=== PATIENT | female | born 1955 | race Caucasian/White ===

== ENCOUNTER 2018-03-14 18:55 | Emergency (ER) | payer MEDICAID, MEDICARE ==
[2018-03-14 19:16] VITALS: BP 150/99
--- NOTE | 2018-03-14 19:47 | EDM.PDOC ---
ED HPI GENERAL MEDICAL PROBLEM - General Chief Complaint: Lower Extremity Injury/Pain Stated Complaint: RIGHT KNEE INJURY Time Seen by Provider: 03/14/18 19:41 Source of Information: Reports: Patient, Family, RN Notes Reviewed History Limitations: Reports: No Limitations - History of Present Illness INITIAL COMMENTS - FREE TEXT/NARRATIVE: 62-year-old female presents to the emergency department day complaint of right knee pain, she injured herself 2 days ago with a twisting injury pain has gotten increasingly worse, is able to ambulate Right Knee Pain Score (Numeric/FACES): 10 - Related Data Allergies Allergy/AdvReac Type Severity Reaction Status Date / Time No Known Allergies Allergy Verified 03/14/18 19:11 Home Meds: Home Meds FLUoxetine [PROzac] 20 mg PO DAILY 05/31/15 [History] buPROPion [Wellbutrin SR] 100 mg PO DAILY 05/31/15 [History] Topiramate [Topamax] 200 mg PO BID 06/01/15 [History] Acetaminophen/HYDROcodone [[place] 325-10 MG] 1 tab PO Q6H PRN #20 tablet [Rx] Dextroamphetamine/Amphetamine [Adderall Xr 30 mg Capsule] 30 mg PO DAILY [History] Prazosin [Minpress] 1 mg PO BEDTIME PRN 03/14/18 [History] SUMAtriptan [Imitrex] 6 mg SQ ASDIRECTED 03/14/18 [History] Zolpidem Tartrate [Ambien] 10 mg PO BEDTIME 03/14/18 [History] Past Medical History HEENT History: Reports: Cataract, Impaired Vision Cardiovascular History: Reports: Hypertension Genitourinary History: Reports: Chronic Renal Insuffiency, Renal Calculus Other Genitourinary History: 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: hx bilateral mastectomy Musculoskeletal History: Reports: Arthritis, Fracture, Fibromyalgia Other Musculoskeletal History: hx of tail bone fx Psychiatric History: Reports: Depression Endocrine/Metabolic History: Reports: Diabetes, Type II Oncologic (Cancer) History: Reports: Breast - Infectious Disease History Infectious Disease History: Reports: Chicken Pox, Measles, Mumps, Pertussis ( Whooping Cough) - Past Surgical History HEENT Surgical History: Reports: Cataract Surgery, Oral Surgery, Tonsillectomy GI Surgical History: Reports: Appendectomy, Cholecystectomy Female Surgical History: Reports: Section, Hysterectomy Oncologic Surgical History: Reports: Mastectomy, Other (See Below) Other Oncologic Surgeries/Procedures: double total mastectomy Social & Family History - Tobacco Use Smoking Status *Q: Current Every Day Smoker Years of Tobacco use: 20 Packs/Tins Daily: 0.5 - Caffeine Use Caffeine Use: Reports: None - Recreational Drug Use Recreational Drug Use: No Review of Systems - Review of Systems Review Of Systems: See Below Musculoskeletal: Reports: Joint Pain (Knee pain) Skin: Reports: No Symptoms Neurological: Reports: No Symptoms ED EXAM, GENERAL - Physical Exam Exam: See Below Free Text/Narrative:: Examination of the right knee on appreciate any erythema there is no edema noted she is tender to palpation on the medial aspect does not tolerate valgus, Gustavo's is negative anterior drawer is negative pedal pulse is +2 Exam Limited By: No Limitations General Appearance: Alert, WD/WN, No Apparent Distress Course - Vital Signs Last Recorded V/S: Last Vital Signs Temp 97.5 F 03/14/18 19:15 Pulse 82 03/14/18 19:15 Resp 18 03/14/18 19:15 BP 150/99 H 03/14/18 19:15 Pulse Ox 96 03/14/18 19:15 - Orders/Labs/Meds Orders: Active Orders 24 hr Category Date Time Status Knee 3V Rt [CR] Stat Exams 03/14/18 19:44 Ordered DME for Discharge [COMM] Urgent Oth 03/14/18 20:11 Ordered Departure - Departure Time of Disposition: 20:13 Disposition: Home, Self-Care 01 Condition: Good Clinical Impression: Strain of right knee Qualifiers: Encounter type: initial encounter Qualified Code(s): S86.911A - Strain of unspecified muscle(s) and tendon(s) at lower leg level, right leg, initial encounter - Discharge Information Referrals: Dalton Rivera NP [Primary Care Provider] - Forms: ED Department Discharge Additional Instructions: Continue to use knee brace and crutches as needed for pain control and comfort, continue to use ibuprofen as needed for baseline pain control, please follow-up with your primary care provider in the next 2-3 days for reevaluation, call return to the emergency department worsening of symptoms - My Orders Last 24 Hours: My Active Orders 03/14/18 19:44 Knee 3V Rt [CR] Stat 03/14/18 20:11 DME for Discharge [COMM] Urgent - Assessment/Plan Last 24 Hours: My Active Orders 03/14/18 19:44 Knee 3V Rt [CR] Stat 03/14/18 20:11 DME for Discharge [COMM] Urgent Plan: Assessment Acuity = acute Site and laterality = right knee strain Etiology = secondary twisting injury Manifestations = none Location of injury = Home Lab values = knee x-rayI did review films myself I cannot appreciate any acute process, the official read from radiology is pending Plan She is placed in a knee immobilizer and crutches will follow up with primary care the next 2-3 days for reevaluation continued use ibuprofen or Tylenol as needed for pain control This note was dictated using [employer] voice recognition software please call with any questions on syntax or grammar.
--- NOTE | 2018-03-15 09:09 | CR ---
Knee 3V Rt CLINICAL HISTORY: Right knee pain FINDINGS: No acute fracture or dislocation is noted. There are no osseous lesions. Articular surfaces are smooth. There is some patellar spurring. Impression: No fracture Mild osteoarthritic change
== END 2018-03-14 20:29 | disposition home or self-care (01) ==
LOC: JP.ED 18:55
DX: S86.911A Strain of unspecified muscle(s) and tendon(s) at lower leg level, right leg, initial encounter (principal); I12.9 Hypertensive chronic kidney disease with stage 1 through stage 4 chronic kidney disease, or unspecified chronic kidney disease; N18.4 Chronic kidney disease, stage 4 (severe); F17.210 Nicotine dependence, cigarettes, uncomplicated; E11.9 Type 2 diabetes mellitus without complications; Z79.899 Other long term (current) drug therapy; X50.9XXA Other and unspecified overexertion or strenuous movements or postures, initial encounter; Y92.009 Unspecified place in unspecified non-institutional (private) residence as the place of occurrence of the external cause
CPT/HCPCS: 73562-26-RT; 73562-RT; 99284

== ENCOUNTER 2018-04-08 16:16 | Emergency (ER) | payer MEDICARE ==
[2018-04-08] MEDS ORDERED: Ondansetron 4 MG/2 ML SDV IVPUSH ONE (16:57)
[2018-04-08] MEDS ORDERED: Sodium Chloride 0.9% 10 ML Syringe FLUSH PRN (16:57)
[2018-04-08] MEDS ORDERED: Sodium Chloride 0.9% 1,000 ML IV ONE (16:57)
--- NOTE | 2018-04-08 17:09 | EDM.PDOCBH ---
ED HPI GENERAL MEDICAL PROBLEM - General Chief Complaint: Headache Stated Complaint: VIA [facility] Time Seen by Provider: 04/08/18 16:40 Source of Information: Reports: Patient, EMS, Police History Limitations: Reports: No Limitations. Denies: Altered Mental Status, Combative/Threatening, Respiratory Distress - History of Present Illness INITIAL COMMENTS - FREE TEXT/NARRATIVE: Chiquita presents today per EMS for concerns of suicide attempt. Per police a 72 hour hold was placed. stating Chiquita's said she was threatening suicide by taking too many pills. Deputies responded and found patient locked in her bathroom. One bottle of hydrocodone 10/325mg tablets with fill date of 03/23/18 for #120 present with #3 tablets in bottle. Chiquita states her took some of her pain pills to [place] with him. She states she also thinks she has about #10 in her purse. Patient is awake, alert with no respiratory depression upon presentation to the emergency room. GCS 15. Patient complains of migraine headache for 7 days. She has tried resting, ice, heat, baths, sumatriptan. She also complains of flare of fibromyalgia and untreated anaplasmosis. Headache Pain Score (Numeric/FACES): 7 - Related Data Allergies Allergy/AdvReac Type Severity Reaction Status Date / Time No Known Allergies Allergy Verified 04/08/18 16:32 Home Meds: Home Meds FLUoxetine [PROzac] 20 mg PO DAILY 05/31/15 [History] buPROPion [Wellbutrin SR] 100 mg PO DAILY 05/31/15 [History] Acetaminophen/HYDROcodone [[place] 325-10 MG] 1 tab PO Q6H PRN #20 tablet [Rx] Dextroamphetamine/Amphetamine [Adderall Xr 30 mg Capsule] 30 mg PO DAILY [History] SUMAtriptan [Imitrex] 6 mg SQ ASDIRECTED 03/14/18 [History] Zolpidem Tartrate [Ambien] 10 mg PO BEDTIME 03/14/18 [History] Past Medical History HEENT History: Reports: Cataract, Impaired Vision Cardiovascular History: Reports: Hypertension Gastrointestinal History: Reports: Inflammatory Bowel Disease Genitourinary History: Reports: Chronic Renal Insuffiency, Renal Calculus Other Genitourinary History: 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: hx bilateral mastectomy Musculoskeletal History: Reports: Arthritis, Fracture, Fibromyalgia Other Musculoskeletal History: hx of tail bone fx Neurological History: Reports: Migraines Psychiatric History: Reports: ADHD, Depression Endocrine/Metabolic History: Reports: Diabetes, Type II Other Endocrine/Metabolic History: no meds in 3 years Hematologic History: Reports: Other (See Below) Other Hematologic History: vitamin D deficiency Oncologic (Cancer) History: Reports: Breast - Infectious Disease History Infectious Disease History: Reports: Chicken Pox, Measles, Mumps, Pertussis ( Whooping Cough) - Past Surgical History HEENT Surgical History: Reports: Cataract Surgery, Oral Surgery, Tonsillectomy GI Surgical History: Reports: Appendectomy, Cholecystectomy Female Surgical History: Reports: Section, Hysterectomy Oncologic Surgical History: Reports: Mastectomy, Other (See Below) Other Oncologic Surgeries/Procedures: double total mastectomy Social & Family History - Tobacco Use Years of Tobacco use: 40 Tobacco Use Comment: smoker 40years states 2 ciggs a day was 1 pack a day - Caffeine Use Caffeine Use: Reports: Energy Drinks, Soda - Recreational Drug Use Recreational Drug Use: No ED ROS GENERAL - Review of Systems Review Of Systems: See Below Constitutional: Reports: Fatigue, Other (Flare of fibromyalgia). Denies: Fever , Chills, Malaise, Weakness HEENT: Reports: No Symptoms Respiratory: Denies: Shortness of Breath, Wheezing, Cough, Sputum Cardiovascular: Reports: No Symptoms Endocrine: Reports: No Symptoms GI/Abdominal: Reports: Nausea. Denies: Black Stool, Bloody Stool, Constipation , Diarrhea, Decreased Appetite, Distension, Vomiting : Reports: No Symptoms Musculoskeletal: Reports: Other (Generalized muscle pain) Skin: Reports: No Symptoms Neurological: Reports: Headache. Denies: Confusion, Dizziness, Numbness, Paresthesia, Syncope, Tingling, Trouble Speaking, Difficulty Walking, Weakness, Gait Disturbance Psychiatric: Reports: Depression, Other (Patient denies suicidal/homicidal ideation or plan, however police have placed a 72-hour hold. ) Hematologic/Lymphatic: Reports: No Symptoms Immunologic: Reports: No Symptoms ED EXAM, BEHAVIORAL HEALTH - Physical Exam Exam: See Below Text/Narrative:: Chiquita is an alert and oriented 62 year old female presenting per EMS by law enforcement for concerns of overdose. Patient is alert, oriented and cooperative. She reports she is upset with not being able to see her grandchild. Exam Limited By: No Limitations General Appearance: Alert, WD/WN, Mild Distress Eye Exam: Bilateral Eye: EOMI, Normal Inspection, PERRL Ears: Normal External Exam, Normal Canal, Hearing Grossly Normal, Normal TMs Nose: Normal Inspection, Normal Mucosa, No Blood Throat/Mouth: Normal Inspection, Normal Lips, Normal Gums, Normal Oropharynx, Normal Voice, No Airway Compromise Head: Atraumatic, Normocephalic Neck: Normal Inspection, Supple, Non-Tender, Full Range of Motion. No: Lymphadenopathy (R), Lymphadenopathy (L) Respiratory/Chest: No Respiratory Distress, Lungs Clear, Normal Breath Sounds, No Accessory Muscle Use, Chest Non-Tender Cardiovascular: Normal Peripheral Pulses, Regular Rate, Rhythm, No Edema, No Murmur, No Rub GI/Abdominal: Normal Bowel Sounds, Soft, Non-Tender, No Distention, No Mass Back Exam: Normal Inspection, Full Range of Motion. No: CVA Tenderness (R), CVA Tenderness (L) Extremities: Normal Inspection, Normal Range of Motion, Non-Tender, No Pedal Edema, Normal Capillary Refill Neurological: Alert, Normal Cognition, No Motor/Sensory Deficits, Oriented x 3, Other (Tearful) Psychiatric: Alert, Oriented, Flat Affect, Tearful. No: Poor Eye Contact, Homicidal Thoughts, Suicidal Plan, Suicidal Thoughts, Auditory Hallucinations, Visual Hallucinations Skin Exam: Warm, Dry, Intact, Normal color, No rash EKG INTERPRETATION EKG Date: 04/08/18 Time: 17:56 Rhythm: NSR Rate (Beats/Min): 75 [place]: LAD-Left [place] Deviation P-Wave: Present QRS: Normal ST-T: Normal QT: Normal COURSE, BEHAVIORAL HEALTH COMP - Course Vital Signs: Last Vital Signs Temp 37.6 C 04/08/18 16:19 Pulse 66 04/08/18 20:35 Resp 18 04/08/18 20:35 BP 171/96 H 04/08/18 21:20 Pulse Ox 97 04/08/18 20:35 17:17 Patient status discussed with her primary provider Dalton Rivera NP. We will evaluate the patient and she will follow up with Miguel as directed. Orders, Labs, Meds: Active Orders 24 hr Category Date Time Status EKG Documentation Completion [RC] ASDIRECTED Care 09/14/18 17:23 Active Head wo Cont [CT] Stat Exams 04/08/18 19:54 Taken Lactated Ringers [Ringers, Lactated] 1,000 ml Med 04/08/18 19:00 Active IV ASDIRECTED Sodium Chloride 0.9% [Saline Flush] Med 04/08/18 16:57 Active 10 ml FLUSH ASDIRECTED PRN Saline Lock Insert [OM.PC] Routine Oth 04/08/18 16:57 Ordered EKG 12 Lead [EK] Routine Ther 04/08/18 17:23 Ordered Medication Orders Lactated Ringer's (Ringers, Lactated) 1,000 mls @ 1,000 mls/hr IV ASDIRECTED LEOBARDO Last Admin: 04/08/18 19:11 Dose: 1,000 mls/hr Sodium Chloride (Saline Flush) 10 ml FLUSH ASDIRECTED PRN PRN Reason: Keep Vein Open Laboratory Tests 04/08/18 04/08/18 04/08/18 Range/Units 17:08 17:08 17:08 WBC 7.3 (4.5-11.0) K/uL RBC 4.80 (3.30-5.50) M/uL Hgb 15.5 H D (12.0-15.0) g/dL Hct 46.8 (36.0-48.0) % MCV 98 (80-98) fL MCH 32 H (27-31) pg MCHC 33 (32-36) % Plt Count 303 (150-400) K/uL Neut % (Auto) 68 H (36-66) % Lymph % (Auto) 22 L (24-44) % [place] % (Auto) 7 H (2-6) % Eos % (Auto) 3 (2-4) % Baso % (Auto) 0 (0-1) % Sodium 140 (140-148) mmol/L Potassium 4.0 (3.6-5.2) mmol/L Chloride 103 (100-108) mmol/L Carbon Dioxide 28 (21-32) mmol/L Anion Gap 9.1 (5.0-14.0) mmol/L BUN 34 H D (7-18) mg/dL Creatinine 1.8 H (0.6-1.0) mg/dL Est Cr Clr Drug Dosing 29.53 mL/min Estimated GFR (MDRD) 29 L (>60) Glucose 134 H (74-106) mg/dL Calcium 10.1 D (8.5-10.1) mg/dL Total Bilirubin 0.2 (0.2-1.0) mg/dL AST 20 (15-37) U/L ALT 29 (12-78) U/L Alkaline Phosphatase 118 H (46-116) U/L Total Protein 7.2 (6.4-8.2) g/dL Albumin 3.3 L (3.4-5.0) g/dL Globulin 3.9 H (2.3-3.5) g/dL Albumin/Globulin Ratio 0.9 L (1.2-2.2) TSH, Ultra Sensitive (0.358-3.740) uIU/mL Salicylates 1.8 L (2.0-20.0) mg/dL Urine Opiates Screen (NEGATIVE) Ur Oxycodone Screen (NEGATIVE) Urine Methadone Screen (NEGATIVE) Ur Propoxyphene Screen (NEGATIVE) Acetaminophen < 2.0 L (10.0-30.0) ug/mL Ur Barbiturates Screen (NEGATIVE) Ur Tricyclics Screen (NEGATIVE) Ur Phencyclidine Scrn (NEGATIVE) Ur Amphetamine Screen (NEGATIVE) U Methamphetamines Scrn (NEGATIVE) Urine MDMA Screen (NEGATIVE) U Benzodiazepines Scrn (NEGATIVE) U Cocaine Metab Screen (NEGATIVE) U Marijuana (THC) Screen (NEGATIVE) Ethyl Alcohol mg/dL 04/08/18 04/08/18 04/08/18 Range/Units 17:08 17:08 17:25 WBC (4.5-11.0) K/uL RBC (3.30-5.50) M/uL Hgb (12.0-15.0) g/dL Hct (36.0-48.0) % MCV (80-98) fL MCH (27-31) pg MCHC (32-36) % Plt Count (150-400) K/uL Neut % (Auto) (36-66) % Lymph % (Auto) (24-44) % [place] % (Auto) (2-6) % Eos % (Auto) (2-4) % Baso % (Auto) (0-1) % Sodium (140-148) mmol/L Potassium (3.6-5.2) mmol/L Chloride (100-108) mmol/L Carbon Dioxide (21-32) mmol/L Anion Gap (5.0-14.0) mmol/L BUN (7-18) mg/dL Creatinine (0.6-1.0) mg/dL Est Cr Clr Drug Dosing mL/min Estimated GFR (MDRD) (>60) Glucose (74-106) mg/dL Calcium (8.5-10.1) mg/dL Total Bilirubin (0.2-1.0) mg/dL AST (15-37) U/L ALT (12-78) U/L Alkaline Phosphatase (46-116) U/L Total Protein (6.4-8.2) g/dL Albumin (3.4-5.0) g/dL Globulin (2.3-3.5) g/dL Albumin/Globulin Ratio (1.2-2.2) TSH, Ultra Sensitive 0.780 (0.358-3.740) uIU/mL Salicylates (2.0-20.0) mg/dL Urine Opiates Screen Presumptive positive H (NEGATIVE) Ur Oxycodone Screen Presumptive positive H (NEGATIVE) Urine Methadone Screen Negative (NEGATIVE) Ur Propoxyphene Screen Negative (NEGATIVE) Acetaminophen (10.0-30.0) ug/mL Ur Barbiturates Screen Negative (NEGATIVE) Ur Tricyclics Screen Negative (NEGATIVE) Ur Phencyclidine Scrn Negative (NEGATIVE) Ur Amphetamine Screen Presumptive positive H (NEGATIVE) U Methamphetamines Scrn Negative (NEGATIVE) Urine MDMA Screen Negative (NEGATIVE) U Benzodiazepines Scrn Presumptive positive H (NEGATIVE) U Cocaine Metab Screen Negative (NEGATIVE) U Marijuana (THC) Screen Presumptive positive H (NEGATIVE) Ethyl Alcohol < 3 mg/dL Medications Generic Name Dose Route Start Last Admin Trade Name Freq PRN Reason Stop Dose Admin Lactated Ringer's 1,000 mls @ 1,000 mls/hr 04/08/18 19:00 04/08/18 19:11 Ringers, Lactated IV 1,000 mls/hr ASDIRECTED LEOBARDO Administration Sodium Chloride 10 ml 04/08/18 16:57 Saline Flush FLUSH ASDIRECTED PRN Keep Vein Open Discontinued Medications Generic Name Dose Route Start Last Admin Trade Name Freq PRN Reason Stop Dose Admin Clonidine HCl 0.1 mg 04/08/18 21:16 04/08/18 21:20 Catapres PO 04/08/18 21:17 0.1 mg ONETIME ONE Administration Sodium Chloride 1,000 mls @ 1,000 mls/hr 04/08/18 16:57 04/08/18 17:53 Normal Saline IV 04/08/18 17:56 1,000 mls/hr .BOLUS ONE Administration Labetalol HCl 20 mg 04/08/18 18:27 04/08/18 20:07 Normodyne IVPUSH 04/08/18 18:28 Not Given ONETIME ONE Protocol Labetalol HCl 20 mg 04/08/18 19:02 04/08/18 19:12 Normodyne IVPUSH 04/08/18 19:03 20 mg ONETIME ONE Administration Protocol Lorazepam 0.5 mg 04/08/18 19:56 04/08/18 20:02 Ativan IVPUSH 04/08/18 19:57 0.5 mg ONETIME ONE Administration Ondansetron HCl 4 mg 04/08/18 16:57 04/08/18 17:54 Zofran IVPUSH 04/08/18 16:58 4 mg ONETIME ONE Administration Sumatriptan Succinate 6 mg 04/08/18 20:17 04/08/18 20:37 Imitrex SUBCUT 04/08/18 20:18 6 mg ONETIME ONE Administration Patient lab work reviewed. Crisis team arrived. Re-Assessment/Re-Exam: 19:55 Patient reports worsening of headache, unable to sit still. Lorazepam 0.5mg IV ordered. We will complete head CT without contrast. 20:11 Crisis team completed evaluation. They recommend family supervision and safety plan. Patient present. 20:19 No improvement in headache after lorazepam, we will try imitrex 6mg subcutaneous. 20:[address] negative 21:16 Patient blood pressure 170's/70's, we will give her clonidine 0.1mg PO x one dose. Re-Assessment/Re-Exam Date: 04/08/18 (21:18 Patient reports she feels better, she can be discharged to home with . ) Departure - Departure Time of Disposition: 21:08 Disposition: Home, Self-Care 01 Condition: Good Clinical Impression: Migraine, Suicidal thoughts - Discharge Information *PRESCRIPTION DRUG MONITORING PROGRAM REVIEWED*: Yes *COPY OF PRESCRIPTION DRUG MONITORING REPORT IN PATIENT BORIS: Yes Instructions: Migraine Headache Referrals: PCP,None [Primary Care Provider] - Forms: ED Department Discharge Additional Instructions: You have been evaluated and treated for suicidal thoughts and migraine headache. CT scan of head negative for any acute findings. You were given IV fluids, lorazepam and imitrex IM while in the emergency room. Your lab work did not show any acute signs of infection, however you continue to suffer from decreased kidney function. Keep yourself hydrated. Follow your safety plan, if feeling like you want to kill yourself or anyone else return to the emergency room to prevent self harm or harm to others. Follow up with your primary in the next 3 to 7 days for a recheck. Return to the emergency room for worsening, issues or concerns. - My Orders Last 24 Hours: My Active Orders 04/08/18 16:57 Sodium Chloride 0.9% [Saline Flush] 10 ml FLUSH ASDIRECTED PRN Saline Lock Insert [OM.PC] Routine 04/08/18 17:23 EKG Documentation Completion [RC] ASDIRECTED EKG 12 Lead [EK] Routine 04/08/18 19:00 Lactated Ringers [Ringers, Lactated] 1,000 ml IV ASDIRECTED 04/08/18 19:54 Head wo Cont [CT] Stat - Assessment/Plan Last 24 Hours: My Active Orders 04/08/18 16:57 Sodium Chloride 0.9% [Saline Flush] 10 ml FLUSH ASDIRECTED PRN Saline Lock Insert [OM.PC] Routine 04/08/18 17:23 EKG Documentation Completion [RC] ASDIRECTED EKG 12 Lead [EK] Routine 04/08/18 19:00 Lactated Ringers [Ringers, Lactated] 1,000 ml IV ASDIRECTED 04/08/18 19:54 Head wo Cont [CT] Stat Plan: Patient evaluated and treated for suicidal thoughts and migraine headache. Crisis team in to evaluated her, speak with patient's . Safety plan completed. CT scan of head negative for any acute findings. Patient given IV fluids, lorazepam and imitrex IM while in the emergency room. Lab work did not show any acute signs of infection, however she may continue to suffer from decreased kidney function. Keep hydrated. Follow safety plan, if feeling like she wants to kill herself or anyone else return to the emergency room to prevent self harm or harm to others. Follow up with primary in the next 3 to 7 days for a recheck. Monitor blood pressure at home and report to primary provider for management. Return to the emergency room for worsening, issues or concerns.
[2018-04-08 17:49] LABS: ACETAMINOPHEN < 2.0 ug/mL (10.0-30.0)
[2018-04-08] MEDS ORDERED: Labetalol 100 MG/20 ML MDV IVPUSH ONE (18:27)
[2018-04-08] MEDS ORDERED: Lactated Ringers 1,000 ML IV SCH (19:00)
[2018-04-08] MEDS ORDERED: Labetalol 20 MG/4 ML Syringe IVPUSH ONE (19:02)
[2018-04-08] MEDS ORDERED: LORazepam 2 MG/ML SDV IVPUSH ONE (19:56)
[2018-04-08] MEDS ORDERED: SUMAtriptan 6 MG/0.5 ML SDV SUBCUT ONE (20:17)
[2018-04-08] MEDS ORDERED: cloNIDine 0.1 MG Tab PO ONE (21:16)
[2018-04-08 21:20] VITALS: BP 171/96
== END 2018-04-08 21:34 | disposition home or self-care (01) ==
LOC: JP.ED 16:16
DX: G43.909 Migraine, unspecified, not intractable, without status migrainosus (principal); R45.851 Suicidal ideations; F17.210 Nicotine dependence, cigarettes, uncomplicated; I12.9 Hypertensive chronic kidney disease with stage 1 through stage 4 chronic kidney disease, or unspecified chronic kidney disease; E11.22 Type 2 diabetes mellitus with diabetic chronic kidney disease; N18.4 Chronic kidney disease, stage 4 (severe); Z79.899 Other long term (current) drug therapy
CPT/HCPCS: 36415; 70450; 80053; 80305; 84443; 85025; 93005; 96361; 96372; 96374; 96375; 99285; A9270; G0480; J2060; J2405; J3030; J3490; J7030; J7120

== ENCOUNTER 2018-04-10 00:03 | Emergency (ER) | payer MEDICARE ==
[2018-04-10 00:33] VITALS: BP 149/75
--- NOTE | 2018-04-10 01:11 | EDM.PDOC ---
ED HPI GENERAL MEDICAL PROBLEM - General Chief Complaint: Lower Extremity Injury/Pain Stated Complaint: RIGHT KNEE INJURY Time Seen by Provider: 04/10/18 00:30 Source of Information: Reports: Patient, Family History Limitations: Reports: No Limitations - History of Present Illness INITIAL COMMENTS - FREE TEXT/NARRATIVE: 62-year-old female injured her right knee going down stairs. She is already being observed for "meniscus damage" in her right knee, but tonight after hyperextending her knee she's having increased discomfort. She is having trouble bearing weight. Her 3 10 mg hydrocodones that she had left in the emergency room last night from her visit that were picked up this morning are gone. Onset: Sudden Duration: Hour(s): (Within the last few hours) Location: Reports: Lower Extremity, Right Improves with: Reports: Movement, Other (Weightbearing is painful) Associated Symptoms: Reports: No Other Symptoms Right Knee Pain Score (Numeric/FACES): 7 - Related Data Allergies Allergy/AdvReac Type Severity Reaction Status Date / Time No Known Allergies Allergy Verified 04/10/18 00:27 Home Meds: Home Meds FLUoxetine [PROzac] 20 mg PO DAILY 05/31/15 [History] buPROPion [Wellbutrin SR] 100 mg PO DAILY 05/31/15 [History] Acetaminophen/HYDROcodone [[place] 325-10 MG] 1 tab PO Q6H PRN #20 tablet [Rx] Dextroamphetamine/Amphetamine [Adderall Xr 30 mg Capsule] 30 mg PO DAILY [History] SUMAtriptan [Imitrex] 6 mg SQ ASDIRECTED 03/14/18 [History] Zolpidem Tartrate [Ambien] 10 mg PO BEDTIME 03/14/18 [History] Past Medical History HEENT History: Reports: Cataract, Impaired Vision Cardiovascular History: Reports: Hypertension Gastrointestinal History: Reports: Inflammatory Bowel Disease Genitourinary History: Reports: Chronic Renal Insuffiency, Renal Calculus Other Genitourinary History: 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: hx bilateral mastectomy Musculoskeletal History: Reports: Arthritis, Fracture, Fibromyalgia Other Musculoskeletal History: hx of tail bone fx Neurological History: Reports: Migraines Psychiatric History: Reports: ADHD, Depression Endocrine/Metabolic History: Reports: Diabetes, Type II Other Endocrine/Metabolic History: no meds in 3 years Hematologic History: Reports: Other (See Below) Other Hematologic History: vitamin D deficiency Oncologic (Cancer) History: Reports: Breast - Infectious Disease History Infectious Disease History: Reports: Chicken Pox, Measles, Mumps - Past Surgical History HEENT Surgical History: Reports: Cataract Surgery, Oral Surgery, Tonsillectomy GI Surgical History: Reports: Appendectomy, Cholecystectomy Female Surgical History: Reports: Section, Hysterectomy Oncologic Surgical History: Reports: Mastectomy, Other (See Below) Other Oncologic Surgeries/Procedures: double total mastectomy Social & Family History - Tobacco Use Smoking Status *Q: Current Every Day Smoker Years of Tobacco use: 40 Packs/Tins Daily: 0.5 Second Hand Smoke Exposure: Yes - Caffeine Use Caffeine Use: Reports: Energy Drinks, Soda - Recreational Drug Use Recreational Drug Use: No Review of Systems - Review of Systems Review Of Systems: See Below Respiratory: Denies: Shortness of Breath Cardiovascular: Denies: Chest Pain GI/Abdominal: Denies: Abdominal Pain, Nausea, Vomiting Musculoskeletal: Reports: Other (Fibromyalgia) Neurological: Denies: Headache ED EXAM, GENERAL - Physical Exam Exam: See Below Exam Limited By: No Limitations General Appearance: Alert, No Apparent Distress Respiratory/Chest: No Respiratory Distress Cardiovascular: Regular Rate, Rhythm Extremities: Other (Exam of the right knee shows increased pain with extension of the knee straight 2 180. There is no locking. There is no significant effusion) Course - Vital Signs Last Recorded V/S: Last Vital Signs Temp 97.3 F 04/10/18 00:31 Pulse 79 04/10/18 00:31 Resp 16 04/10/18 00:31 BP 149/75 H 04/10/18 00:31 Pulse Ox 94 L 04/10/18 00:31 - Orders/Labs/Meds Orders: Active Orders 24 hr Category Date Time Status Knee 3V Rt [CR] Stat Exams 04/10/18 01:10 Taken - Re-Assessments/Exams Free Text/Narrative Re-Assessment/Exam: 04/10/18 01:22 Patient was offered crutches and an Earl wrap and encouraged to reevaluate on Wednesday or Wednesday but she claims she already has both of these at home. An x- ray of the right knee was obtained. 04/10/18 01:42 X-ray looks normal stable. A four-inch Earl wrap was applied to the knee and she was encouraged to use crutches for the next couple of days and recheck with orthopedics on Wednesday or Wednesday if not improving. Departure - Departure Time of Disposition: :56 Disposition: Home, Self-Care 01 Condition: Good Clinical Impression: Right knee sprain Qualifiers: Encounter type: initial encounter Involved ligament of knee: unspecified ligament Qualified Code(s): S83.91XA - Sprain of unspecified site of right knee , initial encounter - Discharge Information Instructions: Knee Sprain, Adult, [id number] Referrals: Dalton Rivera NP [Primary Care Provider] - Forms: ED Department Discharge Care Plan Goals: Wrap knee for comfort, use crutches until improved. Recheck on Wednesday or Wednesday with orthopedics if not improving satisfactorily. You may need an MRI for further assessment. - My Orders Last 24 Hours: My Active Orders 04/10/18 01:10 Knee 3V Rt [CR] Stat - Assessment/Plan Last 24 Hours: My Active Orders 04/10/18 01:10 Knee 3V Rt [CR] Stat
--- NOTE | 2018-04-11 09:48 | CR ---
Knee 3V Rt CLINICAL HISTORY: Injury FINDINGS: No acute fracture or dislocation is noted. There are no osseous lesions. There is some narr owing in the medial joint space. There is patellar spurring. There is some ossification or calcificat ion below the patella which may be within the synovial space. Impression: No fracture Mild osteophytic change Possible ossified loose body in the anterior synovial space
== END 2018-04-10 01:56 | disposition home or self-care (01) ==
LOC: JP.ED 00:03
DX: S83.91XA Sprain of unspecified site of right knee, initial encounter (principal); F17.210 Nicotine dependence, cigarettes, uncomplicated; I12.9 Hypertensive chronic kidney disease with stage 1 through stage 4 chronic kidney disease, or unspecified chronic kidney disease; N18.4 Chronic kidney disease, stage 4 (severe); E11.22 Type 2 diabetes mellitus with diabetic chronic kidney disease; Z79.899 Other long term (current) drug therapy; X50.0XXA Overexertion from strenuous movement or load, initial encounter
CPT/HCPCS: 73562-26-RT; 73562-RT; 99284

== ENCOUNTER 2018-12-19 14:12 | Emergency (ER) | payer MEDICARE ==
[2018-12-19 14:22] VITALS: BP 135/98
--- NOTE | 2018-12-19 14:37 | EDM.PDOC ---
ED HPI GENERAL MEDICAL PROBLEM - General Chief Complaint: Chest Pain Stated Complaint: MEDICAL VIA NORTH/CHEST PAIN Time Seen by Provider: 12/19/18 14:20 Source of Information: Reports: Patient, EMS History Limitations: Reports: No Limitations - History of Present Illness INITIAL COMMENTS - FREE TEXT/NARRATIVE: 63-year-old female with sharp intermittent chest pains for the past 7-10 days, has had more persistent pain all morning and early afternoon my reading a book. Not related to activity or position. She feels short of breath but also has painful breathing. No significant nausea or vomiting, was a little diaphoretic up on her forehead but not profuse diaphoresis. Denies nausea or vomiting. Similar symptoms 5 years ago, cardiac workup revealed an "epigastric or gastric source". She is going through a lot of stress right now she is trying to reconcile with her ex-. Onset: Unknown/Unsure (Symptoms have been intermittent for the past several weeks) Location: Reports: Chest Quality: Reports: Sharp, Stabbing Worsens with: Reports: Breathing Associated Symptoms: Reports: Chest Pain, Nausea/Vomiting, Other (Emesis 1 in route to the emergency room). 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) (Patient was given sublingual nitroglycerin in route, no effect on the pain) chest Pain Score (Numeric/FACES): 6 - Related Data Allergies Allergy/AdvReac Type Severity Reaction Status Date / Time No Known Allergies Allergy Verified 12/19/18 14:15 Home Meds: Home Meds FLUoxetine [PROzac] 20 mg PO DAILY 05/31/15 [History] buPROPion [Wellbutrin SR] 100 mg PO DAILY 05/31/15 [History] Acetaminophen/HYDROcodone [[place] 325-10 MG] 1 tab PO Q6H PRN #20 tablet [Rx] Dextroamphetamine/Amphetamine [Adderall Xr 30 mg Capsule] 30 mg PO DAILY [History] Zolpidem Tartrate [Ambien] 10 mg PO BEDTIME 03/14/18 [History] Propranolol HCl [Propranolol] 80 mg PO DAILY 12/19/18 [History] SUMAtriptan [Imitrex Pen Injector Kit] 1 kit SQ ASDIRECTED 12/19/18 [History] amLODIPine Besylate [Amlodipine Besylate] 5 mg PO DAILY 12/19/18 [History] Past Medical History HEENT History: Reports: Cataract, Impaired Vision Cardiovascular History: Reports: Hypertension Gastrointestinal History: Reports: Inflammatory Bowel Disease Genitourinary History: Reports: Chronic Renal Insuffiency, Renal Calculus Other Genitourinary History: 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: hx bilateral mastectomy Musculoskeletal History: Reports: Arthritis, Fracture, Fibromyalgia Other Musculoskeletal History: hx of tail bone fx Neurological History: Reports: Migraines Psychiatric History: Reports: ADHD, Depression Endocrine/Metabolic History: Reports: Diabetes, Type II Other Endocrine/Metabolic History: no meds in 3 years Hematologic History: Reports: Other (See Below) Other Hematologic History: vitamin D deficiency Oncologic (Cancer) History: Reports: Breast - Infectious Disease History Infectious Disease History: Reports: Chicken Pox, Measles, Mumps - Past Surgical History HEENT Surgical History: Reports: Cataract Surgery, Oral Surgery, Tonsillectomy GI Surgical History: Reports: Appendectomy, Cholecystectomy Female Surgical History: Reports: Section, Hysterectomy Oncologic Surgical History: Reports: Mastectomy, Other (See Below) Other Oncologic Surgeries/Procedures: double total mastectomy Social & Family History - Tobacco Use Smoking Status *Q: Former Smoker Used Tobacco, but Quit: Yes Month/Year Tobacco Last Used: 1 - Caffeine Use Caffeine Use: Reports: Soda - Recreational Drug Use Recreational Drug Use: No ED ROS GENERAL - Review of Systems Review Of Systems: See Below Constitutional: Reports: Malaise. Denies: Fever, Chills HEENT: Reports: No Symptoms Respiratory: Denies: Shortness of Breath Cardiovascular: Reports: Chest Pain. Denies: Palpitations Endocrine: Reports: Fatigue GI/Abdominal: Reports: Nausea, Vomiting. Denies: Abdominal Pain : Reports: No Symptoms Skin: Reports: Diaphoresis Neurological: Reports: Dizziness. Denies: Headache Psychiatric: Reports: Anxiety ED EXAM, GENERAL - Physical Exam Exam: See Below Exam Limited By: No Limitations General Appearance: Alert, Anxious, Other (Looks uncomfortable but not distressed, holding an emesis bag) Eye Exam: Bilateral Eye: Normal Inspection (No jaundice, good hydration) Respiratory/Chest: No Respiratory Distress, Lungs Clear Cardiovascular: Regular Rate, Rhythm, Other (She does complain of discomfort with palpation of the left chest.). No: Extra Beats GI/Abdominal: Soft, Non-Tender Extremities: Normal Inspection. No: Pedal Edema Neurological: Alert, Oriented Psychiatric: Anxious Skin Exam: Warm, Dry EKG INTERPRETATION Rhythm: NSR Course - Vital Signs Last Recorded V/S: Last Vital Signs Temp 98.3 F 12/19/18 14:13 Pulse 77 12/19/18 14:13 Resp 13 12/19/18 14:13 BP 135/98 H 12/19/18 14:13 Pulse Ox 98 12/19/18 14:13 - Orders/Labs/Meds Labs: Laboratory Tests 12/19/18 12/19/18 Range/Units 14:45 14:45 WBC 8.7 (4.5-11.0) K/uL RBC 4.15 (3.30-5.50) M/uL Hgb 14.1 (12.0-15.0) g/dL Hct 42.1 (36.0-48.0) % MCV 101 H (80-98) fL MCH 34 H (27-31) pg MCHC 34 (32-36) % Plt Count 336 (150-400) K/uL Neut % (Auto) 73 H (36-66) % Lymph % (Auto) 20 L (24-44) % [place] % (Auto) 6 (2-6) % Eos % (Auto) 2 (2-4) % Baso % (Auto) 1 (0-1) % Sodium 141 (140-148) mmol/L Potassium 4.7 (3.6-5.2) mmol/L Chloride 107 (100-108) mmol/L Carbon Dioxide 23 (21-32) mmol/L Anion Gap 11.4 (5.0-14.0) mmol/L BUN 45 H (7-18) mg/dL Creatinine 2.0 H (0.6-1.0) mg/dL Est Cr Clr Drug Dosing 25.18 mL/min Estimated GFR (MDRD) 25 L (>60) Glucose 168 H (74-106) mg/dL Calcium 9.0 (8.5-10.1) mg/dL Total Bilirubin 0.2 (0.2-1.0) mg/dL AST 14 L (15-37) U/L ALT 21 (12-78) U/L Alkaline Phosphatase 97 (46-116) U/L Troponin I < 0.017 (0.000-0.056) ng/mL Total Protein 6.6 (6.4-8.2) g/dL Albumin 3.1 L (3.4-5.0) g/dL Globulin 3.5 (2.3-3.5) g/dL Albumin/Globulin Ratio 0.9 L (1.2-2.2) Meds: Medications Discontinued Medications Generic Name Dose Route Start Last Admin Trade Name Ulysses PRN Reason Stop Dose Admin Al Hydroxide/Mg Hydroxide 15 0 ml 12/19/18 15:20 12/19/18 15:25 ml/ Lidocaine HCl 15 ml PO 12/19/18 15:21 30 ml ONETIME ONE Administration - Re-Assessments/Exams Free Text/Narrative Re-Assessment/Exam: 12/19/18 16:20 EKG showed normal sinus rhythm, two-view chest x-ray was normal, labs are drawn including a troponin. Results showed chronic renal insufficiency stable from 2 years ago and troponin was 0. She was still having some discomfort under her chest so she is given a GI cocktail which resolved the pain from an 8 to a 2. She'll be discharged on daily Prilosec and can return if symptoms are persistent. Departure - Departure Time of Disposition: 16:33 Disposition: Home, Self-Care 01 Condition: Good Clinical Impression: Gastroesophageal reflux disease Qualifiers: Esophagitis presence: esophagitis presence not specified Qualified Code(s): K21.9 - Gastro-esophageal reflux disease without esophagitis Instructions: Nonspecific Chest Pain, [id number] Referrals: PCP,None [Primary Care Provider] - Forms: ED Department Discharge Care Plan Goals: Continue your current medications, consider a daily dose of omeprazole 20 mg for 10 days to 14 days. Return anytime if pain recurs and is persistent.
--- NOTE | 2018-12-19 15:15 | CRLCR ---
HISTORY: Dyspnea. FINDINGS: Two views of the chest are provided. The lungs are clear and there is no evidence for pleural effusion or pneumothorax. Cardiac silhouette size is within normal limits. IMPRESSION: Clear lungs. Dictated by Obey Zamora MD @ Dec 19 2018 3:12PM Signed by Dr. Obey Zamora @ Dec 19 2018 3:13PM
[2018-12-19] MEDS ORDERED: Alum Hydrox/Mag Hydrox/Simeth 15 ML, Lidocaine 2% 15 ML PO ONE ×2 (15:20)
== END 2018-12-19 16:33 | disposition home or self-care (01) ==
LOC: JP.ED 14:12
DX: K21.9 Gastro-esophageal reflux disease without esophagitis (principal); I12.9 Hypertensive chronic kidney disease with stage 1 through stage 4 chronic kidney disease, or unspecified chronic kidney disease; E11.22 Type 2 diabetes mellitus with diabetic chronic kidney disease; N18.9 Chronic kidney disease, unspecified; F32.9 Major depressive disorder, single episode, unspecified; F90.9 Attention-deficit hyperactivity disorder, unspecified type; Z79.899 Other long term (current) drug therapy; Z87.891 Personal history of nicotine dependence
CPT/HCPCS: 36415; 71046; 80053; 84484; 85025; 93005; 99285; A9270